=== PATIENT | male | born 1975 | race Hispanic/Latino ===

== ENCOUNTER 2021-07-02 01:58 | Emergency (ER) | payer SELFPAY ==
[~2021-07-02] VITALS: Ht 180.3 cm; Wt 124.7 kg
[2021-07-02] MEDS ORDERED: NITROGLYCERIN 2% OINT 1 GM PKT TOP STA (02:02)
[2021-07-02] MEDS ORDERED: ASPIRIN 81 MG CHEW TAB PO STA (02:02)
[2021-07-02] MEDS ORDERED: HYDROCODONE/APAP 5MG-325MG TAB PO ONE (02:15)
[2021-07-02 02:20] LABS: BASOPHILS % 0.5 % (0.0-1.0); EOSINOPHILS # (AUTO) 0.1 (0.0-0.4); EOSINOPHILS % 1.7 % (0.0-6.0); HEMATOCRIT 48.7 % (38.2-49.6); HEMOGLOBIN 15.6 g/dL (14.0-18.0); LYMPHOCYTES # (AUTO) 1.2 (1.0-3.2); LYMPHOCYTES % 14.6 % (18.0-39.1); MEAN CORPUSCULAR HEMOGLOBIN 29.3 pg (28-32); MEAN CORPUSCULAR VOLUME 91.5 fL (81-99); MONOCYTES # (AUTO) 0.4 (0.2-0.8); MONOCYTES % 5.5 % (4.4-11.3); NEUTROPHILS # (AUTO) 6.1 (2.1-6.9); NEUTROPHILS % 77.1 % (38.7-80.0); PLATELET COUNT 179 x10e3/uL (140-360); RED BLOOD COUNT 5.32 x10e6/uL (4.3-5.7); RED CELL DISTRIBUTION WIDTH 12.7 % (11.7-14.4)
[2021-07-02 02:30] LABS: INR 0.95; PROTHROMBIN TIME 13.1 seconds (11.9-14.5)
[2021-07-02 02:31] LABS: PARTIAL THROMBOPLASTIN TIME 25.5 seconds (23.8-35.5)
[2021-07-02 02:40] LABS: ALBUMIN 3.8 g/dL (3.5-5.0); ALBUMIN/GLOBULIN RATIO 1.2 (0.8-2.0); ANION GAP 14.5 mmol/L (8-16); CALCIUM 8.1 mg/dL (8.4-10.2); CREATININE, SERUM 1.04 mg/dL (0.72-1.25); POTASSIUM 3.5 mmol/L (3.5-5.1)
[2021-07-02 02:46] LABS: CREATINE KINASE MB 1.7 ng/mL (0-5.0)
[2021-07-02 04:48] VITALS: BP 132/94
== END 2021-07-02 04:56 | disposition home or self-care (01) ==
LOC: ER 02:35
DX: R07.9 Chest pain, unspecified (principal); E11.65 Type 2 diabetes mellitus with hyperglycemia; I10 Essential (primary) hypertension
CPT/HCPCS: 36415; 71045; 80053; 82550; 82553; 83880; 84484; 85025; 85610; 85730; 93005; 99284